=== PATIENT | female | born 1985 | race Caucasian/White ===

== ENCOUNTER → 2016-09-23 | Outpatient (CLI) | payer OTHER ==
[~2016-09-23] MED LIST: BCPILLS PO; OMEP40CA PO; SERT1TAB88 PO; SERT25TA PO
--- NOTE | 2016-09-23 11:23 | DIAGNOSTIC IMAGING REPORT ---
ULTRASOUND RIGHT UPPER QUADRANT ABDOMEN CLINICAL HISTORY: Right upper quadrant abdominal pain. COMPARISON STUDY: Abdominal CT dated 09/15/2012. TECHNIQUE: Real-time, grayscale, and color flow sonography of the right upper quadrant of the abdomen was performed. Images are reviewed in the transverse and longitudinal planes. FINDINGS: Liver: The liver is normal in size and echotexture. There is no intrahepatic biliary ductal dilatation. The main portal vein is patent. Gallbladder: The gallbladder contracted and normal in appearance. No gallstones are identified. There is no gallbladder wall thickening or pericholecystic fluid. A sonographic Randhawa's sign is reportedly absent. The common bile duct measures up to 0.4 cm in diameter. Pancreas: Visualized portions of the pancreatic head and body are normal in appearance. The splenic vein is patent. Right kidney: Survey images of the right kidney demonstrate normal size and echotexture. There is no hydronephrosis. Ascites: None. IMPRESSION: Unremarkable sonographic assessment of the right upper quadrant. No gallstones are identified. Electronically signed by: Darrion Uribe M.D. 09/23/2016 11:21 AM Dictated Date/Time: 09/23/2016 11:20 AM
[2016-09-23 12:20] LABS: BASO % 0.2 %; BASO ABS # 0.02 K/uL (0-0.2); COMPLETE YES; EOS % 2.3 %; HEMATOCRIT 39.1 % (37-47); IG% 0.1 %; LYMPH % 33.8 %; LYMPH ABS # 2.76 K/uL (1.2-3.4); MEAN CELL VOLUME 88.9 fL (80-100); MEAN CORPUSCULAR HEMOGLOBIN 31.6 pg (25-34); MEAN CORPUSCULAR HGB CONC 35.5 g/dl (32-36); MEAN PLATELET VOLUME 11.5 fL (7.4-10.4); MONO % 5.3 %; NEUT % 58.3 %; PLATELET COUNT 222 K/uL (130-400); WHITE BLOOD COUNT 8.17 K/uL (4.8-10.8)
[2016-09-23 12:39] LABS: ALT/SGPT 35 U/L (12-78); AMYLASE 55 U/L (25-115); AST/SGOT 22 U/L (15-37); BLOOD UREA NITROGEN 13 mg/dl (7-18); CALCIUM 8.9 mg/dl (8.5-10.1); CARBON DIOXIDE 31 mmol/L (21-32); CHLORIDE 105 mmol/L (98-107); CREATININE 0.81 mg/dl (0.60-1.20); GLUCOSE 79 mg/dl (70-99); POTASSIUM 3.4 mmol/L (3.5-5.1); SODIUM 141 mmol/L (136-145)
[2016-09-23 12:41] LABS: ALB/GLOB RATIO 1.2 (0.9-2); ALKALINE PHOSPHATASE 57 U/L (45-117)
== END | disposition home or self-care (01) ==
LOC: C.ULTR 10:37
PROVIDERS: ATTEND Nurse Practitioner Family
DX: R10.11 Right upper quadrant pain (principal); R11.0 Nausea

== ENCOUNTER 2016-09-27 07:56 | Emergency (ER) | payer OTHER ==
[~2016-09-27] VITALS: Ht 157.5 cm; Wt 88.4 kg
[~2016-09-27 07:56] MED LIST changes: -BCPILLS PO; -OMEP40CA PO; -SERT1TAB88 PO
[2016-09-27 08:01] VITALS: TEMP 36.8; Ht 157.5 cm; Wt 88.4 kg
[2016-09-27] MEDS ORDERED: SODIUM CHLORIDE 0.9% 1000ML 1,000 ML IV STA (08:09)
[2016-09-27] MEDS ORDERED: OPTIRAY 320 IV PRN (08:30)
--- NOTE | 2016-09-27 08:31 | DIAGNOSTIC IMAGING REPORT ---
CHEST ONE VIEW PORTABLE CLINICAL HISTORY: Chest and abdominal pain COMPARISON STUDY: No previous studies for comparison. FINDINGS: The cardiac and mediastinal contours are normal. There is no evidence of focal pulmonary consolidation. There is no evidence of failure. No pleural effusions are visualized.[ No free air is visualized. A right infrahilar opacity is felt to represent a vascular summation. IMPRESSION: No active disease in the chest. Electronically signed by: Tyler Nam M.D. 09/27/2016 8:29 AM Dictated Date/Time: 09/27/2016 8:28 AM
[2016-09-27 08:40] LABS: BASO % 0.2 %; BASO ABS # 0.01 K/uL (0-0.2); COMPLETE YES; EOS % 2.6 %; HEMATOCRIT 43.2 % (37-47); IG% 0.3 %; LYMPH % 32.2 %; LYMPH ABS # 2.14 K/uL (1.2-3.4); MEAN CELL VOLUME 88.3 fL (80-100); MEAN CORPUSCULAR HEMOGLOBIN 31.3 pg (25-34); MEAN CORPUSCULAR HGB CONC 35.4 g/dl (32-36); MEAN PLATELET VOLUME 11.1 fL (7.4-10.4); MONO % 5.7 %; PLATELET COUNT 248 K/uL (130-400); RED BLOOD COUNT 4.89 M/uL (4.2-5.4); WHITE BLOOD COUNT 6.64 K/uL (4.8-10.8)
[2016-09-27 08:58] LABS: ALT/SGPT 26 U/L (12-78); BLOOD UREA NITROGEN 12 mg/dl (7-18); CALCIUM 8.9 mg/dl (8.5-10.1); CARBON DIOXIDE 26 mmol/L (21-32); CHLORIDE 106 mmol/L (98-107); CREATININE 0.98 mg/dl (0.60-1.20); GLUCOSE 101 mg/dl (70-99); POTASSIUM 3.5 mmol/L (3.5-5.1); SODIUM 142 mmol/L (136-145)
[2016-09-27 09:01] LABS: ALKALINE PHOSPHATASE 62 U/L (45-117); AST/SGOT 16 U/L (15-37)
[2016-09-27] MEDS ORDERED: SERT1TAB88 PO (09:02)
[2016-09-27] MEDS ORDERED: BCPILLS PO (09:02)
[2016-09-27] MEDS ORDERED: OMEP40CA PO (09:02)
[2016-09-27 10:27] LABS: URINE APPEARANCE CLEAR (CLEAR); URINE BILIRUBIN NEG (NEG); URINE COLOR YELLOW; URINE EPITHELIAL CELL AUTO >30 /lpf (0-5); URINE NITRITE NEG (NEG); URINE SPECIFIC GRAVITY 1.001 (1.000-1.030); UROBILINOGEN NEG (NEG); ZZUR CULT IF INDIC CLEAN CATCH NO
[2016-09-27 10:28] LABS: MANUAL MICROSCOPIC REQUIRED? NO; REVIEW REQ? NO
--- NOTE | 2016-09-27 12:22 | DIAGNOSTIC IMAGING REPORT ---
CT ABD/PELVIS IV AND ORAL CONT CLINICAL HISTORY: Generalized abdominal epigastric pain COMPARISON STUDY: 09/15/2012 TECHNIQUE: Following the IV administration of 70. mL of Optiray-320, CT scan of the abdomen and pelvis was performed from the lung bases to the proximal femurs. Images are reviewed in the axial, sagittal, and coronal planes. The IV attached during the injection, and the patient received only limited contrast.. CT DOSE: 716.57 mGy.cm FINDINGS: Lower chest: The heart is normal in size and configuration, without pericardial effusion. The lung bases and pleural spaces are clear. Liver: There is only limited contrast opacification. No hepatic masses are visualized. Gallbladder: Unremarkable. Spleen: Normal in size and attenuation. Pancreas: Unremarkable. Adrenal glands: Unremarkable. Kidneys: There is symmetric renal cortical enhancement. The kidneys are normal in size without hydronephrosis. Bowel: There are no transition zones indicate bowel obstruction. The appendix appears normal. There is no diverticulitis. Peritoneum: There is trace free fluid in the pelvis. No free air is visualized. Vasculature: The abdominal aorta is normal in course and caliber. Adenopathy: None. Pelvic viscera: The bladder, and pelvic viscera are unremarkable. Skeletal structures: No destructive osseous lesions are seen. IMPRESSION: 1. No acute intra-abdominal or pelvic findings 2. Trace free fluid within the pelvis, likely physiologic 3. No evidence of bowel obstruction. No evidence of free air 4. Normal appendix. Electronically signed by: Tyler Nam M.D. 09/27/2016 10:37 AM Dictated Date/Time: 09/27/2016 10:33 AM
--- NOTE | 2016-09-27 13:12 | EMERGENCY ROOM VISIT NOTE ---
History Report prepared by Scribe: Opal Villalobso Under the Supervision of: Dr. Gibran Brady D.O. First contact with patient: 08:06 Chief Complaint: ABDOMINAL PAIN Stated Complaint: UPPER STOMACH/CHEST PAIN History of Present Illness The patient is a 31 year old female who presents to the Emergency Room with complaints of persistent epigastric abdominal pain for the past 5 days. She rates her discomfort as a 7/10 and states it feels like heartburn because the pain is "burning" in nature. Laying down worsens her pain. She notes she is on Omeprazole, but states it is not "touching" her discomfort. Tums has also not provided any relief. The patient reports she had a gallbladder ultrasound performed last week, ordered by her PCP, but states she doesn't know what the results are yet. She also complains of nausea, but has not vomited and denies any diarrhea. Source of History: patient Onset: 5 days [place] Position: abdomen Symptom Intensity: 7/10 Quality: burning Timing: other (persistent) Modifying Factors (Worsening): rest (laying down) Modifying Factors (Relieving): other (Tums, Omeprazole) Associated Symptoms: + nausea, No diarrhea, No vomiting Review of Systems See HPI for pertinent positives & negatives. A total of 10 systems reviewed and were otherwise negative. Past Medical & Surgical Medical Problems: (1) Calculus Of Kidney Social History Smoking Status: Never Smoker Alcohol Use: none Drug Use: none Marital Status: Housing Status: lives with family Occupation Status: unemployed Current/Historical Medications Scheduled Control Pills ( Control Pills), 1 TAB PO QPM Omeprazole (Prilosec), 40 MG PO QPM Sertraline HCl (Sertraline HCl), 25 MG PO QPM Allergies Coded Allergies: Codeine (Verified Allergy, Intermediate, Triggers asthma; grazyna., 09/27/16) Physical Exam Vital Signs Date Time Temp Pulse Resp B/P Pulse Ox O2 Delivery O2 Flow Rate FiO2 09/27/16 12:00 84 16 109/56 99 09/27/16 09:28 69 16 110/76 100 Room Air 09/27/16 08:01 36.8 75 18 121/80 97 Room Air Physical Exam CONSTITUTIONAL/VITAL SIGNS: Reviewed / noted above. GENERAL: Non-toxic in appearance. INTEGUMENTARY: Warm, dry, and [place]. HEAD: Normocephalic. EYES: without scleral icterus or trauma. ENT/OROPHARYNX: clear and moist. LYMPHADENOPATHY/NECK: Is supple without lymphadenopathy or meningismus. RESPIRATORY: Lungs clear and equal. CARDIOVASCULAR: Regular rate and rhythm. GI/ABDOMEN: Soft, mild tenderness to epigastric area. No organomegaly or pulsatile mass. No rebound or guarding. Normal bowel sounds. EXTREMITIES: Warm and well perfused. BACK: No CVA tenderness. NEUROLOGICAL: Intact without focal deficits. PSYCHIATRIC: normal affect. MUSCULOSKELETAL: Normally developed with good muscle tone. Medical Decision & Procedures ER Provider Diagnostic Interpretation: This X-Ray was reviewed and interpreted by myself and the radiologist. CHEST ONE VIEW PORTABLE IMPRESSION: No active disease in the chest. Electronically signed by: Tyler Nam M.D. 09/27/2016 8:[address] scan was reviewed and interpreted by the radiologist and reviewed by myself. CT ABD/PELVIS IV AND ORAL CONT IMPRESSION: 1. No acute intra-abdominal or pelvic findings 2. Trace free fluid within the pelvis, likely physiologic 3. No evidence of bowel obstruction. No evidence of free air 4. Normal appendix. Electronically signed by: Tyler Nam M.D. 09/27/2016 10:37 AM Laboratory Results 09/27/16 08:30 Red Blood Count 4.89, Mean Corpuscular Volume 88.3, Mean Corpuscular Hemoglobin 31.3, Mean Corpuscular Hemoglobin Concent 35.4, Mean Platelet Volume 11.1, Neutrophils (%) (Auto) 59.0, Lymphocytes (%) (Auto) 32.2, Monocytes (%) (Auto) 5.7, Eosinophils (%) (Auto) 2.6, Basophils (%) (Auto) 0.2, Neutrophils # (Auto) 3.92, Lymphocytes # (Auto) 2.14, Monocytes # (Auto) 0.38, Eosinophils # (Auto) 0.17, Basophils # (Auto) 0.01 09/27/16 08:30 Test 09/27/16 08:30 09/27/16 10:00 White Blood Count 6.64 K/uL (4.8-10.8) Red Blood Count 4.89 M/uL (4.2-5.4) Hemoglobin 15.3 g/dL (12.0-16.0) Hematocrit 43.2 % (37-47) Mean Corpuscular Volume 88.3 fL (80-100) Mean Corpuscular Hemoglobin 31.3 pg (25-34) Mean Corpuscular Hemoglobin Concent 35.4 g/dl (32-36) Platelet Count 248 K/uL (130-400) Mean Platelet Volume 11.1 fL (7.4-10.4) Neutrophils (%) (Auto) 59.0 % Lymphocytes (%) (Auto) 32.2 % Monocytes (%) (Auto) 5.7 % Eosinophils (%) (Auto) 2.6 % Basophils (%) (Auto) 0.2 % Neutrophils # (Auto) 3.92 K/uL (1.4-6.5) Lymphocytes # (Auto) 2.14 K/uL (1.2-3.4) Monocytes # (Auto) 0.38 K/uL (0.11-0.59) Eosinophils # (Auto) 0.17 K/uL (0-0.5) Basophils # (Auto) 0.01 K/uL (0-0.2) RDW Standard Deviation 41.9 fL (36.4-46.3) RDW Coefficient of Variation 13.0 % (11.5-14.5) Immature Granulocyte % (Auto) 0.3 % Immature Granulocyte # (Auto) 0.02 K/uL (0.00-0.02) Anion Gap 10.0 mmol/L (3-11) Est Creatinine Clear Calc Drug Dose 87.5 ml/min Estimated GFR () 90.3 Estimated GFR (Non- 78.0 BUN/Creatinine Ratio 12.0 (10-20) Calcium Level 8.9 mg/dl (8.5-10.1) Total Bilirubin 0.4 mg/dl (0.2-1) Direct Bilirubin < 0.1 mg/dl (0-0.2) Aspartate Amino Transf (AST/SGOT) 16 U/L (15-37) Alanine Aminotransferase (ALT/SGPT) 26 U/L (12-78) Alkaline Phosphatase 62 U/L (45-117) Total Protein 7.0 gm/dl (6.4-8.2) Albumin 3.7 gm/dl (3.4-5.0) Lipase 150 U/L (73-393) Urine Color YELLOW Urine Appearance CLEAR (CLEAR) Urine pH 6.0 (4.5-7.5) Urine Specific [place] 1.001 (1.000-1.030) Urine Protein NEG (NEG) Urine Glucose (UA) NEG (NEG) Urine Ketones NEG (NEG) Urine Occult Blood NEG (NEG) Urine Nitrite NEG (NEG) Urine Bilirubin NEG (NEG) Urine Urobilinogen NEG (NEG) Urine Leukocyte Esterase SMALL (NEG) Urine WBC (Auto) 5-10 /hpf (0-5) Urine RBC (Auto) 0-4 /hpf (0-4) Urine Hyaline Casts (Auto) 0 /lpf (0-5) Urine Epithelial Cells (Auto) >30 /lpf (0-5) Urine Bacteria (Auto) NEG (NEG) Urine Test NEG (NEG) Laboratory results as stated above per my review. Medications Administered Medications (Trade) Dose Ordered Sig/Leonard Route Start Time Stop Time Status Last Admin Dose Admin Sodium Chloride (Nss 1000ml) 1,000 ml @ 999 mls/hr Q1H1M STAT IV 09/27/16 08:09 09/27/16 09:09 DC 09/27/16 08:35 999 MLS/HR ED Course 0806: Previous medical records were reviewed. The patient was evaluated in room B11. A complete history and physical examination was performed. 0809: NSS 1000 ml @ 999 mls/hr IV. 1313: I reevaluated the patient. She is feeling much better. I discussed her results and discharge instructions and she verbalized complete understanding and agreement. Medical Decision Differential considered: pancreatitis, hepatitis, or acute cholecystitis, AAA, UTI, pyelonephritis, kidney stones, appendicitis, diverticulitis, shingles, bowel obstruction mesenteric ischemia, intussusception,hernia, ovarian torsion, ruptured ovarian cyst,ectopic , . Physical 31-year-old female who presents to the ED with a chief complaint of epigastric abdominal pain. The patient states that it feels like bad indigestion. She was seen last week by her PCP. She had an ultrasound of her gallbladder as well as blood work. These tests were normal. The patient was told that she may need a HIDA scan. The patient presents for continued symptoms. Her exam reveals mild epigastric discomfort on palpation. Vital signs are normal. Her CBC was normal. A chest x-ray did not show acute disease. Chemistry panel and lipase are normal. Urinalysis did not show infection. test was negative. CT scan of the abdomen and pelvis did not show any acute process. She was told results the test per she was treated with IV fluids. She is felt to be stable for discharge. Impression Primary Impression: Epigastric abdominal pain Scribe Attestation The scribe's documentation has been prepared under my direction and personally reviewed by me in its entirety. I confirm that the note above accurately reflects all work, treatment, procedures, and medical decision making performed by me. Departure Information Referrals Emily Murphy, C.R.N.P. (PCP) Patient Instructions Abd Pain, My [facility] Additional Instructions Your testing today including a CT scan of your abdomen and pelvis did not show the cause for your symptoms. Follow-up with your doctor for further evaluation and care.
[2016-09-27 13:25] VITALS: BP 115/64; PULSE 74; O2SAT 98
== END 2016-09-27 13:37 | disposition home or self-care (01) ==
LOC: C.EDB 07:57
DX: R10.13 Epigastric pain (principal); Z79.899 Other long term (current) drug therapy

== ENCOUNTER 2017-09-19 18:14 | Emergency (ER) | payer OTHER ==
[~2017-09-19] VITALS: Ht 395.2 cm; Wt 92.6 kg
[~2017-09-19 18:14] MED LIST changes: +BCPILLS PO; +OMEP40CA PO; +SERT1TAB88 PO; -SERT25TA PO
[2017-09-19 18:17] VITALS: TEMP 37; Ht 395.2 cm; Wt 92.6 kg
[2017-09-19] MEDS ORDERED: DIAZEPAM INJ 5 MG/ML 2 ML CARP IV STA (18:34)
[2017-09-19] MEDS ORDERED: SODIUM CHLORIDE 0.9% 1000ML 1,000 ML IV STA (18:34)
--- NOTE | 2017-09-19 18:41 | EMERGENCY ROOM VISIT NOTE ---
History Report prepared by Colleen: Alfredo Bernal Under the Supervision of: Dr. Magen Schwartz D.O. First contact with patient: 18:22 Chief Complaint: DIZZY Stated Complaint: VERTIGO AND HEART RACING History of Present Illness The patient is a 32 year old female who presents to the Emergency Room with complaints of worsening dizziness that began on Wednesday, 5 days prior to arrival. The patient states that she took herself to a walk-in clinic on Wednesday and was given Meclizine, which she notes worsened her dizziness. She then visited with her PCP on Wednesday, two days ago in [facility] who sent her to do physical therapy exercises. Since this PCP visit the patient has continued to get worse. Her dizziness is worsened with movement, especially moving her head side to side. Along with the dizziness the patient has also been significantly diaphoretic, seeing double vision, weak/fatigued, and hearing ringing in her ears. The patient was also given 0.5 mg of Ativan, which she doesn't believe improved her condition. The patient did not have any traumatic falls recently. Source of History: patient Onset: 5 days [employer] Position: head Quality: other (Dizziness) Timing: worsening Modifying Factors (Worsening): movement Associated Symptoms: + diaphoresis Review of Systems See HPI for pertinent positives & negatives. A total of 10 systems reviewed and were otherwise negative. Past Medical & Surgical Medical Problems: (1) Calculus Of Kidney Family History Diabetes mellitus Hypertension Social History Smoking Status: Never Smoker Alcohol Use: none Drug Use: none Marital Status: Housing Status: lives with family Occupation Status: unemployed Current/Historical Medications Scheduled Iud's (Paragard Intrauterine Laborer Adjustable Steel Joist), 1 EA PV UD Lorazepam (Ativan), 0.5 MG PO Q8 Omeprazole (Prilosec), 40 MG PO DAILY Paroxetine (Paxil), 20 MG PO DAILY Allergies Coded Allergies: Codeine (Verified Allergy, Intermediate, Triggers asthma; grazyna., 09/27/16) Physical Exam Vital Signs Date Time Temp Pulse Resp B/P (MAP) Pulse Ox O2 Delivery O2 Flow Rate FiO2 09/19/17 20:52 80 16 134/79 98 09/19/17 20:32 89 09/19/17 19:42 81 16 112/81 98 Room Air 09/19/17 19:13 98 Room Air 09/19/17 19:13 96 Room Air 09/19/17 18:17 37.0 108 16 121/84 99 Room Air High Flow Oxygen Physical Exam GENERAL: Patient is awake, alert, and in no acute distress. Patient is very anxious appearing. EYES: The conjunctivae are clear. The pupils are round and reactive. No nystagmus noted. EARS, NOSE, MOUTH AND THROAT: The nose is without any evidence of any deformity. Mucous membranes are moist tongue is midline. TMs are clear bilaterally. NECK: The neck is nontender and supple. RESPIRATORY: Normal respiratory effort is noted there is no evidence of wheezing rhonchi or rales CARDIOVASCULAR: Regular rate and rhythm noted there no murmurs rubs or gallops normal S1 normal S2 GASTROINTESTINAL: The abdomen is soft. Bowel sounds are present in all quadrants. Abdomen is nontender MUSCULOSKELETAL/EXTREMITIES: There is no evidence of gross deformity full range of motion is noted in the hips and shoulders SKIN: There is no obvious evidence of any rash. There are no petechiae, pallor or cyanosis noted. NEUROLOGIC: Patient is awake alert and oriented x3 strength is symmetric patellar reflexes are 2+ bilaterally Medical Decision & Procedures ER Provider Diagnostic Interpretation: Radiology results as stated below per my review and radiologist interpretation: CHEST ONE VIEW PORTABLE HISTORY: EVALUATE ALTERED MENTAL STATUS/WEAKNESS COMPARISON: Chest 09/27/2016 FINDINGS: The lungs are clear. Cardiac silhouette is normal in size. No pleural effusions. No pneumothorax. IMPRESSION: No acute process. Electronically signed by: Carmine Blank M.D. 09/19/2017 7:07 PM Dictated Date/Time: 09/19/2017 7:06 PM HEAD CTA HISTORY: Headache. TECHNIQUE: Multiaxial CT images of the head were performed both before and after the intravenous administration of contrast to evaluate the major cerebral vessels. Maximum intensity projection images were also obtained. A dose lowering technique was utilized adhering to the principles of ALARA. COMPARISON: Brain MRI 12/16/2015. FINDINGS: There is no mass, hematoma, midline shift, or acute infarct. Visualized intracranial internal carotid arteries, distal vertebral arteries, and basilar artery are widely patent. There is no significant stenosis, occlusion, or aneurysm seen within the bilateral ACAs, MCAs, or community relations officer. IMPRESSION: No significant stenosis, occlusion, or aneurysm within the [place]. No acute intracranial abnormality. Electronically signed by: Carmine Blank M.D. 09/19/2017 8:28 PM Dictated Date/Time: 09/19/2017 8:21 PM Laboratory Results 09/19/17 19:15 Red Blood Count 4.71, Mean Corpuscular Volume 89.8, Mean Corpuscular Hemoglobin 31.6, Mean Corpuscular Hemoglobin Concent 35.2, Mean Platelet Volume 10.5, Neutrophils (%) (Auto) 65.7, Lymphocytes (%) (Auto) 24.6, Monocytes (%) (Auto) 6.9, Eosinophils (%) (Auto) 1.9, Basophils (%) (Auto) 0.5, Neutrophils # (Auto) 5.30, Lymphocytes # (Auto) 1.98, Monocytes # (Auto) 0.56, Eosinophils # (Auto) 0.15, Basophils # (Auto) 0.04 09/19/17 19:15 Test 09/19/17 19:15 09/19/17 19:25 White Blood Count 8.06 K/uL (4.8-10.8) Red Blood Count 4.71 M/uL (4.2-5.4) Hemoglobin 14.9 g/dL (12.0-16.0) Hematocrit 42.3 % (37-47) Mean Corpuscular Volume 89.8 fL (80-100) Mean Corpuscular Hemoglobin 31.6 pg (25-34) Mean Corpuscular Hemoglobin Concent 35.2 g/dl (32-36) Platelet Count 238 K/uL (130-400) Mean Platelet Volume 10.5 fL (7.4-10.4) Neutrophils (%) (Auto) 65.7 % Lymphocytes (%) (Auto) 24.6 % Monocytes (%) (Auto) 6.9 % Eosinophils (%) (Auto) 1.9 % Basophils (%) (Auto) 0.5 % Neutrophils # (Auto) 5.30 K/uL (1.4-6.5) Lymphocytes # (Auto) 1.98 K/uL (1.2-3.4) Monocytes # (Auto) 0.56 K/uL (0.11-0.59) Eosinophils # (Auto) 0.15 K/uL (0-0.5) Basophils # (Auto) 0.04 K/uL (0-0.2) RDW Standard Deviation 43.3 fL (36.4-46.3) RDW Coefficient of Variation 13.1 % (11.5-14.5) Immature Granulocyte % (Auto) 0.4 % Immature Granulocyte # (Auto) 0.03 K/uL (0.00-0.02) Est Creatinine Clear Calc Drug Dose 154.2 ml/min Estimated GFR () 118.2 Estimated GFR (Non- 102.0 BUN/Creatinine Ratio 13.2 (10-20) Calcium Level 8.9 mg/dl (8.5-10.1) Magnesium Level 2.0 mg/dl (1.8-2.4) Total Bilirubin 0.4 mg/dl (0.2-1) Direct Bilirubin < 0.1 mg/dl (0-0.2) Aspartate Amino Transf (AST/SGOT) 28 U/L (15-37) Alanine Aminotransferase (ALT/SGPT) 50 U/L (12-78) Alkaline Phosphatase 69 U/L (45-117) Troponin I < 0.015 ng/ml (0-0.045) Total Protein 6.8 gm/dl (6.4-8.2) Albumin 3.7 gm/dl (3.4-5.0) Thyroid Stimulating Hormone (TSH) 1.570 uIu/ml (0.300-4.500) Human Chorionic Gonadotropin, Qual NEG (NEG) Bedside Hemoglobin 13.9 g/dl (12.0-16.0) Bedside Hematocrit 41 % (37-47) Bedside Sodium 142 mEq/L (135-144) Bedside Potassium 3.8 mEq/L (3.3-5.0) Bedside Chloride 101 mEq/L (101-112) Bedside Total CO2 27 mEq/l (24-31) Anion Gap 18.0 mmol/L (16-25) Bedside Blood Urea Nitrogen 10 mg/dl (7-18) Bedside Creatinine 0.9 mg/dl (0.6-1.3) Bedside Glucose (other) 94 mg/dl (70-99) Bedside Ionized Calcium (Josi) 1.18 mmol/l (1.12-1.32) Laboratory results per my review. Medications Administered Medications (Trade) Dose Ordered Sig/Leonard Route Start Time Stop Time Status Last Admin Dose Admin Sodium Chloride 1,000 ml @ 999 mls/hr Q1H1M STAT IV 09/19/17 18:34 09/19/17 19:34 DC 09/19/17 19:17 999 MLS/HR Diazepam (Valium Inj) 2.5 mg NOW STAT IV 09/19/17 18:34 09/19/17 18:35 DC 09/19/17 19:15 2.5 MG ECG Indication: tachycardia Rate (beats per minute): 88 Rhythm: normal sinus Findings: nonspecific-ST abn, no acute ischemic change, no ectopy ED Course 1826: The patient was evaluated in room B8. A complete history and physical examination were performed. 1833: Ordered Valium Inj 2.5 mg IV, Sodium Chloride 1000 mL @ 999 mL/hr IV. 2041: Upon reevaluation, the patient is resting in bed. I discussed the results and treatment plan with her. She verbalized agreement of the treatment plan. The patient was discharged home. Medical Decision Differential diagnosis: Etiologies such as benign positional vertigo, dehydration, hypovolemia, anemia, tumor, infection, hypoglycemia, electrolyte abnormalities, cardiac sources, intracerebral event, toxicologic, neurologic, as well as others were entertained. Nursing notes reviewed. The patient is a 32-year-old female who presented to the emergency apartment for an evaluation of vertigo. The patient had very significant symptoms. She was seen by her primary care physician already and sent to rehabilitation. She states when she had vestibular rehabilitation it did help her symptoms somewhat but they returned and became much worse. The patient did not have any focal neurologic deficits. The patient was treated with Valium in the emergency department. I discussed the patient's laboratory and radiographic studies with her. She was encouraged to rest and avoid any strenuous activity. She was also encouraged to continue all medications as prescribed and discuss the possibility with her family doctor that she may require further neuroimaging or possibly a referral to an ear nose and throat physician for further evaluation. Otherwise she was encouraged to return to the emergency department if symptoms change worsen or the need arises. Impression Primary Impression: Vertigo Scribe Attestation The scribe's documentation has been prepared under my direction and personally reviewed by me in its entirety. I confirm that the note above accurately reflects all work, treatment, procedures, and medical decision making performed by me. Departure Information Dispostion Home / Self-Care Referrals Villarreal, Marily M., D.O. (PCP) Forms HOME CARE DOCUMENTATION FORM, IMPORTANT VISIT INFORMATION Patient Instructions My [facility] Additional Instructions Continue all medications as prescribed. Rest and avoid any strenuous activity. Call your family to schedule a follow-up appointment as soon as possible. You may require further studies such as an MRI the brain or possibly a referral to an ear nose and throat physician if symptoms do not improve.
[2017-09-19] MEDS ORDERED: OMEP40CA41 PO (18:56)
[2017-09-19] MEDS ORDERED: IUD'IUD PV (18:56)
[2017-09-19] MEDS ORDERED: PARO1TAB27 PO (18:56)
[2017-09-19] MEDS ORDERED: LORA-741 PO (18:57)
--- NOTE | 2017-09-19 19:09 | DIAGNOSTIC IMAGING REPORT ---
CHEST ONE VIEW PORTABLE HISTORY: EVALUATE ALTERED MENTAL STATUS/WEAKNESS COMPARISON: Chest 09/27/2016 FINDINGS: The lungs are clear. Cardiac silhouette is normal in size. No pleural effusions. No pneumothorax. IMPRESSION: No acute process. Electronically signed by: Carmine Blank M.D. 09/19/2017 7:07 PM Dictated Date/Time: 09/19/2017 7:06 PM
[2017-09-19 19:13] VITALS: O2SAT 96
[2017-09-19 19:32] LABS: BASO % 0.5 %; BASO ABS # 0.04 K/uL (0-0.2); EOS % 1.9 %; EOS ABS # 0.15 K/uL (0-0.5); HEMATOCRIT 42.3 % (37-47); HEMOGLOBIN 14.9 g/dL (12.0-16.0); IG# 0.03 K/uL (0.00-0.02); LYMPH % 24.6 %; LYMPH ABS # 1.98 K/uL (1.2-3.4); MEAN CELL VOLUME 89.8 fL (80-100); MEAN CORPUSCULAR HEMOGLOBIN 31.6 pg (25-34); MEAN CORPUSCULAR HGB CONC 35.2 g/dl (32-36); MEAN PLATELET VOLUME 10.5 fL (7.4-10.4); MONO % 6.9 %; MONO ABS # 0.56 K/uL (0.11-0.59); NEUT % 65.7 %; PLATELET COUNT 238 K/uL (130-400); RED CELL DISTRIBUTION WIDTH CV 13.1 % (11.5-14.5); RED CELL DISTRIBUTION WIDTH SD 43.3 fL (36.4-46.3); WHITE BLOOD COUNT 8.06 K/uL (4.8-10.8)
[2017-09-19 19:38] LABS: ISTAT CREATININE 0.9 mg/dl (0.6-1.3); ISTAT IONIZED CALCIUM 1.18 mmol/l (1.12-1.32); ISTAT POTASSIUM 3.8 mEq/L (3.3-5.0)
[2017-09-19 19:51] LABS: ALBUMIN 3.7 gm/dl (3.4-5.0); ALT/SGPT 50 U/L (12-78); BLOOD UREA NITROGEN 10 mg/dl (7-18); CALCIUM 8.9 mg/dl (8.5-10.1); CARBON DIOXIDE 28 mmol/L (21-32); CREATININE 0.78 mg/dl (0.60-1.20); GLUCOSE 95 mg/dl (70-99); POTASSIUM 3.7 mmol/L (3.5-5.1); SODIUM 142 mmol/L (136-145)
[2017-09-19] MEDS ORDERED: OPTIRAY 320 IV PRN (20:00)
[2017-09-19 20:01] LABS: ALKALINE PHOSPHATASE 69 U/L (45-117); AST/SGOT 28 U/L (15-37); TOTAL PROTEIN 6.8 gm/dl (6.4-8.2)
--- NOTE | 2017-09-19 20:29 | DIAGNOSTIC IMAGING REPORT ---
HEAD CTA HISTORY: Headache. TECHNIQUE: Multiaxial CT images of the head were performed both before and after the intravenous administration of contrast to evaluate the major cerebral vessels. Maximum intensity projection images were also obtained. A dose lowering technique was utilized adhering to the principles of ALARA. COMPARISON: Brain MRI 12/16/2015. FINDINGS: There is no mass, hematoma, midline shift, or acute infarct. Visualized intracranial internal carotid arteries, distal vertebral arteries, and basilar artery are widely patent. There is no significant stenosis, occlusion, or aneurysm seen within the bilateral ACAs, MCAs, or undercollar baster. IMPRESSION: No significant stenosis, occlusion, or aneurysm within the [place]. No acute intracranial abnormality. Electronically signed by: Carmine Blnak M.D. 09/19/2017 8:28 PM Dictated Date/Time: 09/19/2017 8:21 PM
[2017-09-19 20:52] VITALS: BP 134/79; PULSE 80; O2SAT 98
== END 2017-09-19 20:52 | disposition home or self-care (01) ==
LOC: C.EDB 18:15
DX: R42 Dizziness and giddiness (principal); Z87.442 Personal history of urinary calculi; Z83.3 Family history of diabetes mellitus; Z82.49 Family history of ischemic heart disease and other diseases of the circulatory system

== ENCOUNTER → 2017-09-28 | Outpatient (CLI) | payer OTHER ==
[~2017-09-28] MED LIST changes: -BCPILLS PO; +IUD'IUD PV; +LORA-741 PO; -OMEP40CA PO; +OMEP40CA41 PO; +PARO1TAB27 PO; -SERT1TAB88 PO
--- NOTE | 2017-09-28 12:42 | DIAGNOSTIC IMAGING REPORT ---
ADDENDUM The left internal jugular vein is also small in caliber and not clearly identified. Again, this could be due to preferential flow to the right or possibly congenital. However, recommend follow-up venous Doppler of the left internal jugular vein to exclude the possibility of a chronically thrombosed/scarred vein. Electronically signed by: Carmine Blank M.D. 09/28/2017 1:11 PM Dictated Date/Time: 09/28/2017 1:09 PM ORIGINAL REPORT BRAIN MRV CLINICAL HISTORY: Headache. TECHNIQUE: MRV of the brain was performed according to standard departmental protocol without the use of contrast. COMPARISON STUDY: Head CTA 09/19/2017. FINDINGS: The superior sagittal sinus, inferior sagittal sinus, straight sinus, vein of Brandt, internal cerebral veins, right transverse sinus, and right sigmoid sinus are widely patent. Suboptimal evaluation of the left transverse sinus and left sigmoid sinus as these are small in caliber possibly due to preferential flow on the right. However, there is no definite filling defects identified to suggest thrombus. IMPRESSION: No evidence for dural venous sinus thrombosis. Of note, the left transverse sinus and left sigmoid sinus are small in caliber and therefore suboptimally evaluated. Electronically signed by: Carmine Blank M.D. 09/28/2017 12:41 PM Dictated Date/Time: 09/28/2017 12:36 PM
== END | disposition home or self-care (01) ==
LOC: C.MRI 11:08
PROVIDERS: ATTEND Internal Medicine
DX: R51 Headache (principal)

== ENCOUNTER → 2017-10-01 | Outpatient (CLI) | payer OTHER ==
--- NOTE | 2017-10-01 13:52 | DIAGNOSTIC IMAGING REPORT ---
VENOUS DOPPLER UPR EXT UNIL HISTORY: 32 years-old Female ABNFINDINGS ON IMAGING,LT UNIL INTERNAL JUGULAR... Diminished size of the left internal jugular vein on comparison MRV. Follow-up study. COMPARISON: MRV 09/28/2017 TECHNIQUE: Multiple real-time sonographic images of the left internal jugular vein were obtained assessing grayscale appearance and color flow. Limited images of the right internal jugular vein also obtained for comparison. FINDINGS/IMPRESSION: The left internal jugular vein is asymmetrically smaller than the right however is patent without internal thrombus identified. The above report was generated using voice recognition software. It may contain grammatical, syntax or spelling errors. Electronically signed by: Aakash Mi M.D. 10/01/2017 1:51 PM Dictated Date/Time: 10/01/2017 1:44 PM
== END | disposition home or self-care (01) ==
LOC: C.ULTR 12:50
PROVIDERS: ATTEND Internal Medicine
DX: R93.8 Abnormal findings on diagnostic imaging of other specified body structures (principal)

== ENCOUNTER → 2017-10-13 | Outpatient (CLI) | payer OTHER ==
[~2017-10-13] MED LIST changes: +GADAVIST IV PRN
--- NOTE | 2017-10-13 17:40 | DIAGNOSTIC IMAGING REPORT ---
Brain MRI WITH AND WITHOUT CONTRAST HISTORY: MIGRAINE W/O AURA AND W/O STATUS MIGRAINOSUS TECHNIQUE: Multiplanar multisequence MRI of the brain was performed both before and after the intravenous administration of contrast. COMPARISON STUDY: Brain MRI 12/16/2015. FINDINGS: There are no areas of restricted diffusion to suggest acute infarction. The midline structures are intact. Mild mucosal thickening within the left maxillary sinus and left ethmoid air cells. Punctate focus of T2 hyperintensity within the white matter of the left frontal lobe, unchanged. This is of doubtful clinical significance. Stable small developmental venous anomaly within the right high convexity which is considered a normal variant.. The mastoid air cells are clear. The ventricles and sulci are within normal limits for age. There is no mass, hematoma, midline shift. The major vascular flow-voids at the skull base are well maintained. Postcontrast sequences show no areas of abnormal enhancement. IMPRESSION: No significant change compared to the prior study. No acute intracranial abnormality. Electronically signed by: Carmine Blank M.D. 10/13/2017 5:38 PM Dictated Date/Time: 10/13/2017 5:31 PM
== END | disposition home or self-care (01) ==
LOC: C.MRI 16:31
PROVIDERS: ATTEND Internal Medicine
DX: G43.009 Migraine without aura, not intractable, without status migrainosus (principal)

== ENCOUNTER 2017-10-31 09:56 | Emergency (ER) | payer OTHER ==
[~2017-10-31] VITALS: Ht 157.5 cm; Wt 100.7 kg
[~2017-10-31 09:56] MED LIST changes: +CITA20TA9 PO; -GADAVIST IV PRN; -PARO1TAB27 PO
[2017-10-31 10:12] VITALS: TEMP 36.9; Ht 157.5 cm; Wt 100.7 kg
[2017-10-31] MEDS ORDERED: ONDANSETRON INJ 2 MG/ML 2 ML VIAL IV STA (10:29)
[2017-10-31] MEDS ORDERED: KETOROLAC TROMETHAMINE 30 MG/ML VIAL IV STA (10:29)
[2017-10-31] MEDS ORDERED: SODIUM CHLORIDE 0.9% 1000ML 1,000 ML IV STA (10:29)
[2017-10-31] MEDS ORDERED: DSY100 PO (11:11)
[2017-10-31] MEDS ORDERED: AMT25 PO (11:11)
[2017-10-31] MEDS ORDERED: VNTHFA/IN INH (11:11)
[2017-10-31] MEDS ORDERED: MoRPHine SULFATE 4 MG/ML 1 ML CARP\\VIAL IV STA (11:39)
[2017-10-31] MEDS ORDERED: MoRPHine SULFATE 4 MG/ML 1 ML CARP\\VIAL ONE (11:41)
--- NOTE | 2017-10-31 13:19 | Progress Note ---
Progress Note Date of Service Oct 31, 2017. Progress Note Consulted by Dr. Mead in ED for this 32yo female patient with c/o headache for possible PDPH. Pt was seen and interviewed. She was being worked up for pseudotumor cerebri and had a lumbar puncture done under fluoroscopy on Wednesday. LP was done and 10ml of CSF fluid was collected. OP was slightly elevated at 25. Pt states that she had laid down in bed on Wednesday after the procedure and most of Wednesday. When she tried to get up later Wednesday night, she had a severe headache on the occipital area. JAMES is worse with sitting and standing up and relieved by laying flat. She tried conservative treatment including caffeine , fluid, excedrin without much relieved. She denies having n/v, photophobia, or numbness/weakness anywhere. Denies any bleeding disorder or being on any anticoagulation. Explained to patient that her symptoms are consistent with PDPH and discussed with patient regarding treatment options of continuing conservative management vs doing epidural blood patch. Risks/benefits of blood patch explained in details to patient and patient opted to proceed with blood patch. Consent was obtained. Case was also discussed with her neurologist due to her diagnosis of pseudotumor cerebri. Neurologist stated to proceed with blood patch for the PDPH. Patient was placed on sitting position and on monitor. Her back was prepped with duraprep. Sterile technique was used throughout. 3ml of 1% lidocaine sq was injected at L3-4 space. 17g tuohy needle was placed. LORTA at 6.5cm. Micky Gómez CRNA, prepped her right AC under sterile condition before venipuncture was made and 20ml of blood was collected. 20ml of blood was then injected into her epidural space slowly without resistance. Pt tolerated procedure well. VSS stable throughout. Pt felt immediate relief after procedure was done. Dr. Mead was made aware of patient's condition.
[2017-10-31 13:58] VITALS: BP 124/81; PULSE 70; O2SAT 99
--- NOTE | 2017-10-31 17:56 | EMERGENCY ROOM VISIT NOTE ---
History Report prepared by Colleen: Lee Ortiz Under the Supervision of: Dr. Catracho eMad M.D. First contact with patient: 10:19 Chief Complaint: HEADACHE Stated Complaint: SPINAL HEADACHE History of Present Illness The patient is a 32 year old female who presents to the Emergency Room with complaints of a worsening headache that started 1 day ago. She had a spinal tap 2 days ago for a new diagnoses of a pseudotumor. She states that she has pain in the back of her neck with minimal improvement from Tylenol, Ibuprofen, Excedrin, and caffeine. The patient states sitting up worsens the headache. Lying down improves the pain. The patient denies fevers, numbness, and weakness. The patient has a history of asthma and migraines. Source of History: patient Onset: 1 day ago Position: head, neck Quality: ache Timing: worsening Modifying Factors (Worsening): other (Sitting up) Modifying Factors (Relieving): rest (laying down) Associated Symptoms: No fevers, No weakness, No numbness Review of Systems See HPI for pertinent positives & negatives. A total of 10 systems reviewed and were otherwise negative. Past Medical & Surgical Medical Problems: (1) Calculus Of Kidney Old medical records were reviewed. Nurse's notes were reviewed and I agree with. Family History Diabetes mellitus Hypertension Social History Smoking Status: Never Smoker Alcohol Use: none Drug Use: none Marital Status: Housing Status: lives with family Occupation Status: unemployed Current/Historical Medications Scheduled Amitriptyline HCl (Amitriptyline HCl), 25 MG PO BID Citalopram Hydrobromide (Celexa), 20 MG PO DAILY Lorazepam (Ativan), 0.5 MG PO Q8 Omeprazole (Prilosec), 40 MG PO DAILY Trazodone HCl (Trazodone HCl), 100 MG PO UD Scheduled PRN Albuterol Hfa (Ventolin Hfa), 2-4 PUFFS INH Q6H PRN for SOB/Wheezing Allergies Coded Allergies: Codeine (Verified Allergy, Intermediate, Triggers asthma; grazyna., 10/31/17) Physical Exam Vital Signs Date Time Temp Pulse Resp B/P (MAP) Pulse Ox O2 Delivery O2 Flow Rate FiO2 10/31/17 13:58 70 20 124/81 99 10/31/17 13:00 78 20 99/75 99 Room Air 10/31/17 11:47 89 20 103/75 98 Room Air 10/31/17 10:12 36.9 104 17 121/74 98 Room Air Physical Exam General: Non-ill appearing young female in no acute distress. HEENT: Normal cephalic atraumatic. Pupils are equal round and reactive to light. Extraocular movements are intact. Oropharynx is pink with moist mucous membranes. No swelling of the mouth lips or tongue. Neck: Supple with a midline trachea. No meningeal signs or stiffness, no JVD or bruits. No Stridor. Chest: Clear to auscultation bilaterally. No wheezes or rhonchi. No increased work of breathing. Heart: regular rate and rhythm. Abdomen: Soft nontender, nondistended without rebound guarding or rigidity. Extremities: No cyanosis clubbing or edema. No calf tenderness or assymetry Spine/Back. Non tender to palpation. No CVA tenderness. Well healing spinal tap site. No redness or signs of infection. Skin: Good turgor without rashes. Neurologic exam: Cranial nerves two through 12 are intact. Motor and sensation are intact and symmetrical throughout. Medical Decision & Procedures Medications Administered Medications (Trade) Dose Ordered Sig/Leonard Route Start Time Stop Time Status Last Admin Dose Admin Sodium Chloride 1,000 ml @ 999 mls/hr Q1H1M STAT IV 10/31/17 10:29 10/31/17 11:29 DC 10/31/17 11:01 999 MLS/HR Ketorolac Tromethamine (Toradol Inj) 30 mg NOW STAT IV 10/31/17 10:29 10/31/17 10:30 DC 10/31/17 11:00 30 MG Ondansetron HCl (Zofran Inj) 4 mg NOW STAT IV 10/31/17 10:29 10/31/17 10:30 DC 10/31/17 11:00 4 MG Morphine Sulfate (MoRPHine SULFATE INJ) 4 mg STK-MED ONCE .ROUTE 10/31/17 11:41 10/31/17 11:42 DC 10/31/17 11:44 4 MG ED Course 1019: Past medical records reviewed. The patient was evaluated in room C8, and a complete history and physical examination were performed. 1029: Zofran Inj, 4mg, IV; Toradol Inj, 30 mg, IV; Sodium Chloride 1000 ml @ 999 mls/hr IV. 1129: I checked on the patient and she is doing well. Her headache worsens with getting up. I ordered her additional pain medications. 1139: Morphine Sulfate Inj, 4 mg, IV. 1141: Morphine Sulfate Inj, 4 mg, IV. 1217: I spoke with Dr. Mary Yoon. Discussed the patient's case. The patient will be evaluated for further management. 1225: I spoke with Dr. Shah. Discussed the patient's case. The patient will be evaluated for further management. 1237: I checked on the patient. She is about to get a blood patch. 1318: Upon reevaluation, the patient is doing well. I discussed the results and treatment plan with her. She verbalized agreement of the treatment plan. The patient was discharged home. Medical Decision Differential diagnoses includes spinal headache, migraine, dehydration, electrolyte and metabolic abnormality, and infection. This patient comes in as described above. She was placed in room C8. She is here after having a headache. She has spinal tap 2 days ago for possible pseudotumor. Her opening pressure was 25 with a closing pressure of 18. She has had chronic headaches but this feels different. This is positional. She has had no fever chills. There are no other complaints. She tried caffeine without relief. IV access established and she was hydrated with IV normal saline. She was given Toradol 30 mg IV. She was still having pain and was given morphine 4 mg IV and Zofran 4 mg IV. Despite this, she still had pain with any movement. She desires to proceed with a blood patch and I did consult anesthesia. I also talked to Dr. Shah, who is on-call for neurology, and he said there be no contraindication to doing a blood patch given the possible diagnosis of pseudotumor. Her headache is very consistent with a spinal headache at present. They came down to the ER and performed a blood patch and she felt better very quickly afterwards and up to going home. She will be discharged home. She will return if: worsening of symptoms, any new problems or concerns. Medication Reconcilliation Current Medication List: was personally reviewed by me Blood Pressure Screening Patient's blood pressure: Normal blood pressure Blood pressure disposition: Did not require urgent referral Consults Time Called: 1215 Consulting Physician: Dr. Mary Yoon - Anesthesiology Returned Call: [phone] Discussed the patient's case. The patient will be evaluated for further management. Additional Consults: Time Called: 1219 Consulted Physician: Dr. Shah - Neurology Returned Call: [phone] Additional Comments: Discussed the patient's case. The patient will be evaluated for further management. Impression Primary Impression: Spinal headache Scribe Attestation The scribe's documentation has been prepared under my direction and personally reviewed by me in its entirety. I confirm that the note above accurately reflects all work, treatment, procedures, and medical decision making performed by me. Departure Information Dispostion Discharge/Transfer to [facility] Referrals Tegan Tobias PA-C (PCP) Forms HOME CARE DOCUMENTATION FORM, IMPORTANT VISIT INFORMATION Patient Instructions My [facility] Additional Instructions Rest. Drink plenty of fluids. Follow-up with your neurologist this week for recheck Return if: Worsening of symptoms, increasing pain, fever or chills, any new problems or concerns.
== END 2017-10-31 13:59 | disposition home or self-care (01) ==
LOC: C.EDB 09:57 → C.EDC 13:59
DX: G97.1 Other reaction to spinal and lumbar puncture (principal); R51 Headache